=== PATIENT | female | born 1955 | race African-American/Black ===

== ENCOUNTER 2022-10-01 10:17 | Emergency (ER) | payer MEDICARE, BC ==
[~2022-10-01] VITALS: Ht 167.6 cm; Wt 96.4 kg
[~2022-10-01 10:17] MED LIST: ESTR0.5T28 PO; ROSU20TA2 PO; SYN0.088T PO
[2022-10-01 10:49] VITALS: BP 133/85; PULSE 70; RESP 15; O2SAT 96
[2022-10-01] MEDS ORDERED: MUPI22OI30 TOP (13:11)
[2022-10-01] MEDS ORDERED: DOXY100C43 PO (13:11)
== END 2022-10-01 13:18 | disposition home or self-care (01) ==
LOC: ER 10:18
DX: L08.9 Local infection of the skin and subcutaneous tissue, unspecified (principal); Z79.2 Long term (current) use of antibiotics; Z79.899 Other long term (current) drug therapy; Z90.710 Acquired absence of both cervix and uterus
CPT/HCPCS: 99283

== ENCOUNTER 2023-01-05 11:44 | Emergency (ER) | payer MEDICARE, BC ==
[~2023-01-05] VITALS: Ht 167.6 cm; Wt 95.0 kg
[2023-01-05 13:14] LABS: BILIRUBIN,URINE NEGATIVE (Neg); CLARITY,URINE CLEAR (Clear); COLOR,URINE YELLOW (Yellow); GLUCOSE, URINE NEGATIVE (Neg); KETONES,URINE NEGATIVE (Neg); LEUKOCYTE ESTERASE ,URINE NEGATIVE (Neg); NITRITES, URINE NEGATIVE (Neg); OCCULT BLOOD,URINE SMALL (Neg); PROTEIN,URINE NEGATIVE (Neg); UROBILINOGEN,URINE 0.2 E.U/dL (0.2-1.0)
[2023-01-05 13:15] LABS: UA COLLECTION TYPE CLN CATCH MIDSTREAM
[2023-01-05 13:22] LABS: SQUAMOUS EPITHELIAL CELL,UR MODERATE /LPF (FEW)
[2023-01-05 13:23] LABS: BACTERIA,URINE FEW /HPF (Neg); RBC,URINE 0-2 /HPF (0-2)
[2023-01-05 13:50] LABS: BASOPHILS # (AUTO) 0.1 X10'3 (0-0.2); BASOPHILS % (AUTO) 0.7 % (0-1); EOSINOPHILS # (AUTO) 0.3 X10'3 (0-0.9); EOSINOPHILS % (AUTO) 3.2 % (0-6); HEMATOCRIT 37.8 % (35.0-45.0); HEMOGLOBIN 11.9 g/dl (12.0-16.0); LYMPHOCYTES # (AUTO) 1.6 X10'3 (1.1-4.8); LYMPHOCYTES % (AUTO) 15.3 % (21-51); MEAN CORPUSCULAR HEMOGLOBIN 26.3 PG (27.0-31.0); MEAN CORPUSCULAR HGB CONC 31.5 g/dL (33.0-36.5); MEAN CORPUSCULAR VOLUME 83.4 FL (78-98); MEAN PLATELET VOLUME 7.3 FL (7.4-10.4); MONOCYTES # (AUTO) 0.9 X10'3 (0-0.9); MONOCYTES % (AUTO) 8.3 % (2-12); NEUTROPHILS # (AUTO) 7.6 X10'3 (1.8-7.7); NEUTROPHILS % (AUTO) 72.5 % (42-75); PLATELET COUNT 375 X10'3 (140-440); RED BLOOD COUNT 4.53 X10'6 (4.20-5.60); RED CELL DISTRIBUTION WIDTH 15.3 % (11.5-14.5); WHITE BLOOD COUNT 10.5 X10'3 (4.5-11.0)
[2023-01-05 14:04] LABS: ALANINE AMINOTRANSFERASE 119 U/L (12-78); ALBUMIN 3.1 G/DL (3.4-5.0); ALBUMIN/GLOBULIN RATIO 0.6 (1.1-1.5); ALKALINE PHOSPHATASE 418 IU/L (46-116); ANION GAP 12 (8-16); ASPARTATE AMINO TRANSFERASE 48 U/L (10-37); BILIRUBIN,TOTAL 0.4 MG/DL (0.1-1.0); BLOOD UREA NITROGEN 15 MG/DL (7-18); BUN/CREATININE RATIO 12.5 (10.0-20.0); CALCIUM 9.5 MG/DL (8.5-10.1); CHLORIDE 102 MMOL/L (99-107); GLUCOSE 94 MG/DL (70-104); POTASSIUM 3.9 MMOL/L (3.5-5.1); SODIUM 136 MMOL/L (135-145); TOTAL PROTEIN 8.1 G/DL (6.4-8.2); eCRCL 43 ML/MIN; eGFR 54 ML/MIN
[2023-01-05] MEDS ORDERED: cloNIDine 0.1 mg tablet PO ONE (15:25)
[2023-01-05] MEDS ORDERED: HYDROcodone/acetaminophen 5mg/325mg tablet PO ONE (15:25)
[2023-01-05] MEDS ORDERED: HYDR-3965 PO (16:56)
[2023-01-05 17:16] VITALS: BP 115/75; PULSE 70; RESP 15; TEMP 98; O2SAT 96
--- NOTE | 2023-01-05 17:28 | NUR ---
REVIEWED AND AGREE WITH ASSESSMENT
== END 2023-01-05 17:21 | disposition home or self-care (01) ==
LOC: ER 11:44
DX: R51.9 Headache, unspecified (principal); R74.01 Elevation of levels of liver transaminase levels; R79.89 Other specified abnormal findings of blood chemistry; E78.00 Pure hypercholesterolemia, unspecified; Z90.49 Acquired absence of other specified parts of digestive tract; Z79.899 Other long term (current) drug therapy
CPT/HCPCS: 36415; 70450; 80053; 81001; 85025; 87088; 99284

== ENCOUNTER 2023-01-07 06:49 | Emergency (ER) | payer MEDICARE, BC ==
[~2023-01-07] VITALS: Ht 167.6 cm; Wt 92.0 kg
[~2023-01-07 06:49] MED LIST changes: +HYDR-3965 PO
[2023-01-07] MEDS ORDERED: magnesium 2GM in 50ml NS 50 ML IV ONE (07:30)
[2023-01-07 08:34] LABS: BILIRUBIN,URINE NEGATIVE (Neg); CLARITY,URINE CLEAR (Clear); COLOR,URINE STRAW (Yellow); GLUCOSE, URINE NEGATIVE (Neg); KETONES,URINE NEGATIVE (Neg); LEUKOCYTE ESTERASE ,URINE TRACE (Neg); NITRITES, URINE NEGATIVE (Neg); OCCULT BLOOD,URINE MODERATE (Neg); PH,URINE 5.5 (4.8-8.0); PROTEIN,URINE NEGATIVE (Neg); UROBILINOGEN,URINE 0.2 E.U/dL (0.2-1.0)
[2023-01-07 08:37] LABS: UA COLLECTION TYPE CLN CATCH MIDSTREAM
[2023-01-07 08:44] LABS: BACTERIA,URINE FEW /HPF (Neg); HYALINE CASTS 0-3 /LPF (NEGATIVE); MUCUS STRANDS NONE SEEN /LPF (Neg); RBC,URINE 0-2 /HPF (0-2); SQUAMOUS EPITHELIAL CELL,UR FEW /LPF (FEW); WBC CLUMPS,URINE FEW /HPF (NEGATIVE)
[2023-01-07 09:25] LABS: BASOPHILS # (AUTO) 0.1 X10'3 (0-0.2); BASOPHILS % (AUTO) 1.3 % (0-1); EOSINOPHILS # (AUTO) 0.4 X10'3 (0-0.9); EOSINOPHILS % (AUTO) 3.6 % (0-6); HEMATOCRIT 36.9 % (35.0-45.0); HEMOGLOBIN 11.9 g/dl (12.0-16.0); LYMPHOCYTES # (AUTO) 1.6 X10'3 (1.1-4.8); LYMPHOCYTES % (AUTO) 14.3 % (21-51); MEAN CORPUSCULAR HEMOGLOBIN 26.4 PG (27.0-31.0); MEAN CORPUSCULAR HGB CONC 32.2 g/dL (33.0-36.5); MEAN CORPUSCULAR VOLUME 81.9 FL (78-98); MEAN PLATELET VOLUME 6.9 FL (7.4-10.4); MONOCYTES % (AUTO) 8.7 % (2-12); NEUTROPHILS % (AUTO) 72.1 % (42-75); PLATELET COUNT 437 X10'3 (140-440); WHITE BLOOD COUNT 11.1 X10'3 (4.5-11.0)
[2023-01-07 09:29] LABS: ALANINE AMINOTRANSFERASE 93 U/L (12-78); ALBUMIN/GLOBULIN RATIO 0.6 (1.1-1.5); ALKALINE PHOSPHATASE 363 IU/L (46-116); ANION GAP 7 (8-16); ASPARTATE AMINO TRANSFERASE 40 U/L (10-37); BILIRUBIN,TOTAL 0.3 MG/DL (0.1-1.0); BLOOD UREA NITROGEN 9 MG/DL (7-18); BUN/CREATININE RATIO 7.6 (10.0-20.0); CALCIUM 9.5 MG/DL (8.5-10.1); CHLORIDE 102 MMOL/L (99-107); CREATININE 1.19 MG/DL (0.40-0.90); GLUCOSE 104 MG/DL (70-104); POTASSIUM 3.9 MMOL/L (3.5-5.1); SODIUM 134 MMOL/L (135-145); TOTAL CARBON DIOXIDE 24.8 MMOL/L (24-32); TOTAL PROTEIN 7.8 G/DL (6.4-8.2); eCRCL 44 ML/MIN; eGFR 55 ML/MIN
[2023-01-07] MEDS ORDERED: diphenhydrAMINE 50 mg/ml inj IV ONE (10:30)
[2023-01-07] MEDS ORDERED: metoclopramide 5 mg/ml inj IV ONE (10:30)
[2023-01-07 10:45] VITALS: TEMP 98.5
[2023-01-07] MEDS ORDERED: chlorproMAZINE 25mg/ml inj. IM PRN (11:50)
[2023-01-07] MEDS ORDERED: chlorproMAZINE 25mg/ml inj. IM ONE (13:20)
--- NOTE | 2023-01-07 13:31 | NUR ---
PT REPORTS NO RELIEF SFTER PREVIOUS MEDS. PT MEDICATED WITH THORAZINE PER ORDERS.
--- NOTE | 2023-01-07 14:32 | NUR ---
PER DR RECINOS, GIVE ANOTHER 50MG OF THORAZINE NOW. CALLED [facility] FOR MED.
--- NOTE | 2023-01-07 15:25 | NUR ---
PT SLEEPING IN NAD.
[2023-01-07] MEDS ORDERED: CEPH-585 PO (16:37)
[2023-01-07] MEDS ORDERED: HYDR-3965 PO (16:37)
--- NOTE | 2023-01-07 17:31 | NUR ---
PT HAD BEEN SLEEPING, AWOKE AMD STATES HER PAIN ISN'T REALLY BETTER. WILL ADVISE
[2023-01-07] MEDS ORDERED: ondansetron/PF 4mg/2ml inj IV ONE (17:40)
[2023-01-07] MEDS ORDERED: morphine 4 MG/ML inj SYRINge IV ONE (17:40)
[2023-01-07 18:03] VITALS: BP 133/75; PULSE 77; RESP 16; O2SAT 99
== END 2023-01-07 18:08 | disposition home or self-care (01) ==
LOC: ER 06:50
DX: R51.9 Headache, unspecified (principal); N39.0 Urinary tract infection, site not specified; E78.00 Pure hypercholesterolemia, unspecified; Z79.2 Long term (current) use of antibiotics; Z79.899 Other long term (current) drug therapy; Z90.710 Acquired absence of both cervix and uterus
CPT/HCPCS: 36415; 70450; 80053; 81001; 85025; 96365; 96366; 96372; 96375; 99285; J1200; J2270; J2405; J2765; J3230; J3475

== ENCOUNTER 2023-07-29 09:56 | Emergency (ER) | payer MEDICARE, BC ==
[~2023-07-29] VITALS: Ht 167.6 cm; Wt 89.0 kg
[~2023-07-29 09:56] MED LIST changes: -HYDR-3965 PO
[2023-07-29 10:05] VITALS: TEMP 98.3
[2023-07-29] MEDS ORDERED: LEVO75TA7 PO (11:44)
[2023-07-29] MEDS: meclizine 12.5mg tablet PO ONE (13:49)
[2023-07-29 13:50] VITALS: BP 132/77; PULSE 65; RESP 17; O2SAT 100
[2023-07-29] MEDS ORDERED: MECL-302 PO (14:54)
== END 2023-07-29 15:15 | disposition home or self-care (01) ==
LOC: ER 09:56
DX: R51.9 Headache, unspecified (principal); R42 Dizziness and giddiness; R11.0 Nausea; E78.00 Pure hypercholesterolemia, unspecified; G47.30 Sleep apnea, unspecified; Z90.710 Acquired absence of both cervix and uterus; Z72.89 Other problems related to lifestyle; Z79.899 Other long term (current) drug therapy
CPT/HCPCS: 99282; A4615; J8597